=== PATIENT | male | born 1960 | race Two or more races ===

== ENCOUNTER 2017-10-11 21:57 | Inpatient (IN) | payer OTHER ==
[~2017-10-11] VITALS: Ht 188 cm; Wt 95.3 kg
[2017-11-23] MEDS ORDERED: LISINOPRIL2.5 MG PO (10:59)
[2017-11-23] MEDS ORDERED: NEURONTIN300 MG PO (10:59)
[2017-11-23] MEDS ORDERED: HUMULIN 70100 UNIT/2 SUBCUTANEO ×2 (10:59)
[2017-11-23] MEDS ORDERED: FOLIC ACID1 MG PO (10:59)
[2017-11-23] MEDS ORDERED: SIMVASTATIN10 MG PO (10:59)
== END 2017-11-23 15:37 | disposition home or self-care (01) | DRG 41 ==
LOC: ER 21:57 → MEDI 10-12 13:31 → SEC-K 10-12 13:31 → MEDI 10-12 23:59 → MEDJ 11-17 17:09
PROC: 0JBR0ZZ Excision of Left Foot Subcutaneous Tissue and Fascia, Open Approach (ICD-10-PCS; principal; 2017-10-12)
PROC: BQ3MZZZ Magnetic Resonance Imaging (MRI) of Left Foot (ICD-10-PCS; 2017-10-12)
PROC: 02HV33Z Insertion of Infusion Device into Superior Vena Cava, Percutaneous Approach (ICD-10-PCS; 2017-10-13)
PROC: 8E0ZXY6 Isolation (ICD-10-PCS; 2017-10-13)
PROC: 0QBR0ZZ Excision of Left Toe Phalanx, Open Approach (ICD-10-PCS; 2017-10-18)
PROC: 0HBRXZZ Excision of Toe Nail, External Approach (ICD-10-PCS; 2017-10-18)
DX: E11.42 Type 2 diabetes mellitus with diabetic polyneuropathy (principal); L97.528 Non-pressure chronic ulcer of other part of left foot with other specified severity; L02.811 Cutaneous abscess of head [any part, except face]; M86.172 Other acute osteomyelitis, left ankle and foot; E11.621 Type 2 diabetes mellitus with foot ulcer; E11.65 Type 2 diabetes mellitus with hyperglycemia; Z79.4 Long term (current) use of insulin; Z88.0 Allergy status to penicillin; L03.032 Cellulitis of left toe; B95.62 Methicillin resistant Staphylococcus aureus infection as the cause of diseases classified elsewhere; E11.69 Type 2 diabetes mellitus with other specified complication; B96.20 Unspecified Escherichia coli [E. coli] as the cause of diseases classified elsewhere; B95.2 Enterococcus as the cause of diseases classified elsewhere; J00 Acute nasopharyngitis [common cold]; I10 Essential (primary) hypertension; B35.1 Tinea unguium